=== PATIENT | female | born 1995 | race Caucasian/White ===

== ENCOUNTER 2016-02-23 13:54 | Emergency (ER) | payer SELFPAY ==
[2016-02-23] MEDS ORDERED: ZOFRAN ODT8 M1 PO (14:42)
== END 2016-02-23 14:46 | disposition home or self-care (01) ==
LOC: ED 13:54
DX: K52.9 Noninfective gastroenteritis and colitis, unspecified (principal)

== ENCOUNTER 2016-07-24 13:54 | Emergency (ER) | payer SELFPAY ==
[~2016-07-24] VITALS: Ht 154.9 cm; Wt 90.9 kg
[~2016-07-24 13:54] MED LIST: ZOFRAN ODT8 M1 PO
[2016-07-24] MEDS ORDERED: AMOXICILLIN875 MG PO (14:45)
[2016-07-24] MEDS ORDERED: NORCO 325 MG-51 TA1 PO (14:45)
[2016-07-24 14:55] VITALS: BP 133/96
== END 2016-07-24 14:59 | disposition home or self-care (01) ==
LOC: ED 13:54
DX: K08.89 Other specified disorders of teeth and supporting structures (principal)